=== PATIENT | female | born 1940 | race Caucasian/White ===

== ENCOUNTER 2016-08-20 06:24 | Day surgery (SDC) | payer MEDICARE, OTHER ==
[~2016-08-20] VITALS: Ht 144.8 cm; Wt 48.4 kg
[~2016-08-20 06:24] MED LIST: BIOT800T PO; BUPR150T12 PO; CALC-78 PO; CHOL100045 PO; CIPR-231 PO; CRB200T PO; Clindamycin 600 mg/50 mL D5W IV ONE; DICY10CA13 PO; FESO8TAB PO; Lactated Ringer's 1,000 ML IV SCH; MULT-1018 PO; OMEG-38 PO; PRE625 PO; PRIM50TA PO; RANI150C4 PO; SENN-133 PO; VITA400C23 PO
[2016-08-20] MEDS ORDERED: Ondansetron 2 mg/mL 2 mL Inj ONE (06:25)
[2016-08-20] MEDS ORDERED: fentaNYL-PF 50 mCg/mL 2 mL Inj ONE (06:25)
[2016-08-20] MEDS ORDERED: Propofol 10,000 mCg/mL 20 mL Inj ONE (06:25)
[2016-08-20] MEDS ORDERED: Clindamycin 600 mg/50 mL D5W Premix IV ONE (06:39)
[2016-08-20 06:46] VITALS: BP 138/61; PULSE 82; RESP 16; O2SAT 99
[2016-08-20] MEDS ORDERED: Lactated Ringer's 1,000 ML IV ONE (07:11)
[2016-08-20] MEDS ORDERED: Lactated Ringer's 1,000 ML IV SCH (08:19)
[2016-08-20] MEDS ORDERED: Lactated Ringer's 500 ML IV PRN (08:19)
[2016-08-20] MEDS ORDERED: Phenylephrine 10,000 mCg/mL Inj IVPUSH PRN (08:20)
[2016-08-20] MEDS ORDERED: EPHEDrine Sulfate 50 mg/mL Inj IVPUSH PRN (08:20)
[2016-08-20] MEDS ORDERED: MetoCLOpramide 5 mg/mL 2 mL Inj IVPUSH PRN (08:20)
[2016-08-20] MEDS ORDERED: HYDROmorphone 1 mg/mL Inj IVPUSH PRN (08:20)
[2016-08-20] MEDS ORDERED: Dexamethasone 4 mg/mL Inj IVPUSH PRN (08:20)
[2016-08-20] MEDS ORDERED: fentaNYL-PF 50 mCg/mL 2 mL Inj IVPUSH PRN (08:20)
[2016-08-20] MEDS ORDERED: Ondansetron 2 mg/mL 2 mL Inj IVPUSH PRN (08:20)
[2016-08-20] MEDS ORDERED: Gentamicin 40 mg/mL 2 mL Inj IRRIGATION ONE (08:37)
[2016-08-20] MEDS ORDERED: Vancomycin 1,000 mg Inj IRRIGATION ONE (08:39)
[2016-08-20] MEDS ORDERED: Bupivacaine-MPF 0.25%/EPI 30 mL Inj INJ ONE (08:41)
--- NOTE | 2016-08-20 08:52 | PCM.HPANE ---
Patient Data Surgeon Admitting Provider: Attending Provider:Susan Rico MD Primary Care Physician:Miguelina Pacheco PA-C Other Provider:Mago Harrison Anesthesia Reason for Visit Mixed Incontinence, Urgency Of Urination Ht/WT & BMI Height (Feet): 4 Height (Inches): 9 Weight (Kilograms): 48.4 Body Mass Index 23.00 Allergies Coded Allergies: cephalexin (Verified Allergy, Unknown, unknown, 08/15/16) Past Anesthesia History Anesthesia History: Denies:: Anesthesia Reactions, Malignant Hyperthermia Diabetes History Hx Diabetes?: No MRSA MRSA: No Medications Home Meds Incl Beta Usha: No Reported Medications Fesoterodine ER (Toviaz)8 Mg Tablet8 Mg PO DAILY 08/15/16 Vitamin E 400 Unit [id number] Unit PO DAILY 08/15/16 Cholecalciferol (Vitamin D3) (Vitamin D)1,000 Unit Capsule2,000 Unit PO DAILY # 1 BOTTLE Ref 0 08/15/16 Primidone 50 Mg Zculnk701 Mg PO TID 30 Days 08/15/16 Estrogens Conjugated (Premarin)0.625 Mg Tablet0.625 Mg PO DAILY 30 Days Ref 0 08/15/16 Multivitamin (Multi Vitamin Daily)1 Each Tablet1 Each PO DAILY 30 Days Ref 0 08/15/16 [place]-3/Dha/Epa/Fish Oil (Fish Oil 1,000 mg Softgel)1 Each Capsule1 Each PO DAILY 08/15/16 Ciprofloxacin (Cipro)500 Mg Rzhxor098 Mg PO BID Ref 0 08/15/16 Carbamazepine 200 Mg Ujbpqd683 Mg PO BID 08/15/16 Calcium Carbonate/Vitamin D3 (Calcium 500 + Vit D Caplet)1 Each Tablet1 Each PO DAILY 08/15/16 Bupropion ER 150 Mg Tablet.er150 Mg PO BID Ref 0 08/15/16 Biotin 800 Mcg Obccqk404 Mcg PO DAILY 08/15/16 Discontinued Reported Medications Sennosides (Senna)8.6 Mg Tablet8.6 Mg PO Q 2 DAYS PRN For Constipation 08/15/16 Ranitidine 150 Mg Spjbmth799 Mg PO QPM Ref 0 08/15/16 Dicyclomine 10 Mg Nxmtlos83 Mg PO TID PRN For GI Cramps Ref 0 08/15/16 History History of ENT Problems?: No HEENT History: Denies:: Abnormal Airway Cataracts Difficult Intubation Dysphagia Glaucoma Hearing Problem Sinus Problem TMJ Denture Type: Partial- Upper Teeth Condition: Within Normal Limits Hx of Heart Problems?: No Cardiovascular History: Denies:: Heart Murmur Hypertension Hx of Respiratory Problem?: No Respiratory History: Denies:: Use of C-PAP Machine Hx Neurologic Problems?: Yes Other Neurological Pertinent: 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 CYSTOS Female Hx: Denies:: Currently Skin History: Denies:: History Skin Disorders? Pressure Ulcers Hx Musculoskeletal Problems?: Yes Musculoskeletal History: Positive for:: Osteoarthritis Hx of Psycho/Social Problems?: Yes Psycho Social History: Positive for:: Anxiety Hx Depression Hx Surgeries?: Yes (CYSTOS,HYST,BUNIONECTOMY) Hx Any Other Health Problems?: Yes Other History: Denies:: Endocrine Disease Hospitalization Thyroid Disease Hx Diabetes: No Hx Alcohol Use: NoHave You Smoked inLast 12 mo: Yes (TRYING TO QUIT)Approx How Many Cigarettes/day: 1 PPD X 20YRS Stop/Bang S-Snoring: Do You Snore Loudly: No T-Tired: feel tired, fatigued: No O-Obsered: Observed not breath: No P-Blood Pressure: treated: No B- Body Mass Index > 35 kg/m2: No A- Age over 50: Yes N- Neck Large Circumference: No G- Gender Male: No ANTONIA Total Score: 1 ANTONIA Risk Assessment: Low Risk, <3 Yes Risk Assessment Category Category 1A: Patient has history of documented sleep apnea, and HAS NOT received any narcotic, sedative or anesthesia administration during this stay. Category 1B: Patient has history of documented sleep apnea, and HAS received any narcotic , sedative or anesthesia administration during this stay Category 2: Patient has SUSPECTED Obstructive Sleep Apnea, and HAS received any narcotic , sedative or anesthesia administration during this stay. Category 3: Patient has SUSPECTED Obstructive Sleep Apnea and HAS NOT received narcotic, sedative or anesthesia administration during this stay. Category 4: Outpatient in Procedural Areas with known sleep apnea or who screen positive for High Risk via the STOP/BANG questionnaire. Exam Exam Vital Signs Vital Signs Date Time Temp Pulse Resp B/P Pulse Ox O2 Delivery O2 Flow Rate FiO2 08/20/16 06:46 36.3 82 16 138/61 99 Room Air General Appearance: Alert, Oriented X3, Cooperative HEENT/AIRWAY: MP 1 Lungs: Clear to Auscultation Heart: Exam Unremarkable Meds/Labs/Diagnostics Admission Meds Current Medications Lactated Ringer's (Lr) 1,000 ml @ ud STK-MED ONCE IV Last administered on 08/20t 07:11; Start 08/20/16 at 07:11; Stop 08/20/16 at 07:12; Status DC Plan Impression Patient chart reviewed, patient interviewed and anesthestic plan with risks, benefits, and alternatives discussed, and informed consent obtained. ASA Physical Status: ASA2 Mod Systemic Disease Anesthetic Plan: MAC Bene/Risks/Altern/Consents: Yes HP Complete Prior to Induction: Yes Angel Beaulieu DO Aug 20, 2016 08:12
[2016-08-20 09:42] VITALS: BP 115/59; PULSE 80; RESP 16; O2SAT 97
[2016-08-20] MEDS ORDERED: Ondansetron 8 mg ODT Tablet PO PRN (09:45)
[2016-08-20] MEDS ORDERED: HYDROcodone-APAP 5-325 mg Tablet PO PRN (09:45)
--- NOTE | 2016-08-20 11:04 | PCM.ANEP1 ---
Post Anesthesia Phase 1 PACU Phase 1 Assessment Vital Signs Vital Signs Date Time Temp Pulse Resp B/P Pulse Ox O2 Delivery O2 Flow Rate FiO2 08/20/16 09:42 36.7 80 16 115/59 97 Room Air 08/20/16 06:46 36.3 82 16 138/61 99 Room Air Anesthetic Administered: MAC Level of Alertness: Awake, talking LACY's with Equal Strength: Yes Pain: No Nausea or Vomiting: No Cardiovascular Function and Hy: Yes Oxygen Delivery: Room Air Lungs: Clear to Auscultation Dermatome Level: Full Sensation Complications: No Follow up Care: No Patient Instructions Provided: Yes Angel Beaulieu DO Aug 20, 2016 11:04
--- NOTE | 2016-08-21 09:25 | OP ---
[address] [address] OPERATIVE REPORT PATIENT: KENN QUINONEZ : 1940 MR#: [id number] ADMIT: 08/20/2016 JOB ID: [id number] DATE OF SURGERY: 08/20/2016 PROCEDURE NAME: Stage 1 InterStim implant to include transforaminal placement of a quadripolar electrode, neuro electrode lead and fluoroscopy imaging and guidance. SURGEON: Susan Rico M.D. ANESTHESIA: Local with monitored anesthesia care and IV sedation. PREOPERATIVE DIAGNOSIS(ES): Intractable urinary urgency, frequency, urge incontinence. POSTOPERATIVE DIAGNOSIS(ES): Intractable urinary urgency, frequency, urge incontinence. INDICATIONS: The patient is a 75-year-old with a longstanding history of mixed incontinence but her bothered symptoms varied predominantly driven by the urge component including urgency, urge incontinence, inability to make it to the bathroom at night. She has tried and failed numerous medications and behavioral changes, wishing to proceed with a trial of sacral nerve modulation for her severe symptoms. PROCEDURE IN DETAIL: After appropriate informed consent was obtained, the patient was brought to the operating room. She received IV antibiotics prior to onset of the procedure. She was made comfortable in the prone position. All pressure points carefully padded. Cleaned, prepped, and draped in the usual sterile fashion. Fluoroscope was brought in. Bony landmarks were identified. We used a half/half mixture of lidocaine, Marcaine with epinephrine for local anesthesia. We used a finder needle to traverse the right-sided S3 sacral foramen assessing S3 responses of toe and caroline. This was converted in a Seldinger fashion once we had good placement to quadripolar electrode. We had responses on all four electrodes. They were well under 1 on electrodes 0 and 1, slightly over 1 on 2 and 3 with final placement having been a little bit better earlier, suspected to be some blood in the region. Comfortable for the patient. There was minimal bleeding. The introducer was removed allowing the tines to deploy and locking lead in place. We then created a pocket overlying the right-sided iliac crest in the buttocks area again with lidocaine, Marcaine for local anesthesia. The pocket was created sharply, bluntly and with electrocautery and the lead was tunneled across to the pocket and we made connections to the extension wire using the boot cover device. Hemostasis was achieved with electrocautery. We then tunneled out the distal end of the extension wire to the patient's left. Next distance between the permanent lead and the temporary portion which will be externalized. The wounds were irrigated out copiously with vancomycin and gentamicin solution between each layer of closure. We closed with a layer of 2-0 Vicryl, a layer of 4-0 Monocryl and then benzoin and Steri-Strips. Sterile dressings were applied. Final fluoroscopic images showed the lead to be in good position, AP and lateral. She tolerated the procedure well, was awakened and taken in stable condition to the one-day surgery area as she had been awake.
[2016-08-26] MEDS ORDERED: SULF1TAB35 PO (13:11)
[2016-08-26] MEDS ORDERED: HYDR-4003 PO (13:11)
== END 2016-08-20 23:59 | disposition home or self-care (01) ==
LOC: SAS 06:24
PROVIDERS: ATTEND Urology
PROC: 01HY0MZ Insertion of Neurostimulator Lead into Peripheral Nerve, Open Approach (ICD-10-PCS; principal; 2016-08-20 08:30)
DX: N39.46 Mixed incontinence (principal); Z90.710 Acquired absence of both cervix and uterus; F17.210 Nicotine dependence, cigarettes, uncomplicated; R35.1 Nocturia
CPT/HCPCS: 64581; 76000; C1778; J1580; J2405; J3010; J3370; J7120

== ENCOUNTER 2016-08-29 05:50 | Day surgery (SDC) | payer MEDICARE, OTHER ==
[~2016-08-29] VITALS: Ht 149.9 cm; Wt 47.4 kg
[~2016-08-29 05:50] MED LIST changes: -Clindamycin 600 mg/50 mL D5W IV ONE; -DICY10CA13 PO; +HYDR-4003 PO; -Lactated Ringer's 1,000 ML IV SCH; -RANI150C4 PO; -SENN-133 PO; +SULF1TAB35 PO
[2016-08-29] MEDS ORDERED: fentaNYL-PF 50 mCg/mL 2 mL Inj ONE (05:51)
[2016-08-29] MEDS ORDERED: Propofol 10,000 mCg/mL 20 mL Inj ONE (05:51)
[2016-08-29] MEDS ORDERED: Clindamycin Inj 600 MG in IV Premix 1 EACH IV ONE (06:00)
[2016-08-29] MEDS: Lactated Ringer's 1,000 ML IV SCH ×2 (06:22→07:26)
[2016-08-29 06:30] VITALS: BP 126/62; PULSE 75; RESP 14; O2SAT 99
[2016-08-29] MEDS ORDERED: Lactated Ringer's 1,000 ML IV SCH (07:08)
[2016-08-29] MEDS ORDERED: Lactated Ringer's 500 ML IV PRN (07:08)
--- NOTE | 2016-08-29 07:08 | PCM.HPANE ---
Patient Data Date of Service: August 29, 2016 Surgeon Admitting Provider: Attending Provider:Susan Rico MD Primary Care Physician:Javier Barron DO Other Provider:Mago Harrison Anesthesia Reason for Visit Mixed Incontinence, Urgency Of Urination Ht/WT & BMI Height (Feet): 4 Height (Inches): 11 Weight (Kilograms): 47.4 Body Mass Index 21.00 Allergies Coded Allergies: cephalexin (Verified Allergy, Unknown, unknown, 08/26/16) iodine (Verified Allergy, Unknown, UNKNOWN, 08/26/16) Past Anesthesia History Anesthesia History: Denies:: Abnormal Airway, Anesthesia Reactions, Difficult Intubation, Malignant Hyperthermia Diabetes History Hx Diabetes?: No MRSA MRSA: No Medications Hypertension Medication: No Home Meds Incl Beta Usha: No Reported Medications Hydrocodone-Acetaminophen 5-325 mg 1 Each Tablet1 Tablet PO Q4H PRN For Pain Ref 0 08/26/16 Fesoterodine ER (Toviaz)8 Mg Tablet8 Mg PO DAILY 08/15/16 Vitamin E 400 Unit [id number] Unit PO DAILY 08/15/16 Cholecalciferol (Vitamin D3) (Vitamin D)1,000 Unit Capsule2,000 Unit PO DAILY # 1 BOTTLE Ref 0 08/15/16 Primidone 50 Mg Jhgmcn262 Mg PO TID 30 Days 08/15/16 Estrogens Conjugated (Premarin)0.625 Mg Tablet0.625 Mg PO DAILY 30 Days Ref 0 08/15/16 Multivitamin (Multi Vitamin Daily)1 Each Tablet1 Each PO DAILY 30 Days Ref 0 08/15/16 [place]-3/Dha/Epa/Fish Oil (Fish Oil 1,000 mg Softgel)1 Each Capsule1 Each PO DAILY 08/15/16 Carbamazepine 200 Mg Xmaexf770 Mg PO BID 08/15/16 Calcium Carbonate/Vitamin D3 (Calcium 500 + Vit D Caplet)1 Each Tablet1 Each PO DAILY 08/15/16 Bupropion ER 150 Mg Tablet.er150 Mg PO BID Ref 0 08/15/16 Biotin 800 Mcg Ikqfpm504 Mcg PO DAILY 08/15/16 Discontinued Reported Medications Sulfamethoxazole/Trimeth 800-160 mg (Bactrim DS 800-160 mg)1 Each Tablet1 Tablet PO BID Ref 0 08/26/16 Ciprofloxacin (Cipro)500 Mg Jkomtn545 Mg PO BID Ref 0 08/15/16 History History of ENT Problems?: Yes HEENT History: Denies:: Abnormal Airway Cataracts Difficult Intubation Dysphagia Hearing Problem Sinus Problem TMJ Denture Type: Partial- Upper Teeth Condition: Within Normal Limits Hx of Heart Problems?: No Cardiovascular History: Denies:: Heart Murmur Hypertension Hx of Respiratory Problem?: No Respiratory History: Denies:: Use of C-PAP Machine Hx Neurologic Problems?: Yes Other Neurological Pertinent: 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 CYSTOS Female Hx: Denies:: Currently Skin History: Denies:: History Skin Disorders? Pressure Ulcers Hx Musculoskeletal Problems?: Yes Musculoskeletal History: Positive for:: Osteoarthritis Hx of Psycho/Social Problems?: Yes Psycho Social History: Positive for:: Anxiety Hx Depression Hx Surgeries?: Yes (CYSTOS,HYST,BUNIONECTOMY,INTERSTIM STAGE I) Hx Any Other Health Problems?: Yes Other History: Denies:: Cancer Endocrine Disease Hospitalization Thyroid Disease Hx Diabetes: No Hx Alcohol Use: No Smoking Status: Current Every Day Smoker Have You Smoked inLast 12 mo: Yes (TRYING TO QUIT)Approx How Many Cigarettes/ day: 1 PPD X 20YRS Stop/Bang Treated for Sleep Apnea?: No Do You Have a CPAP Machine?: No S-Snoring: Do You Snore Loudly: No T-Tired: feel tired, fatigued: No O-Obsered: Observed not breath: No P-Blood Pressure: treated: No B- Body Mass Index > 35 kg/m2: No A- Age over 50: Yes N- Neck Large Circumference: No G- Gender Male: No ANTONIA Total Score: 1 ANTONIA Risk Assessment: Low Risk, <3 Yes Risk Assessment Category Category 1A: Patient has history of documented sleep apnea, and HAS NOT received any narcotic, sedative or anesthesia administration during this stay. Category 1B: Patient has history of documented sleep apnea, and HAS received any narcotic , sedative or anesthesia administration during this stay Category 2: Patient has SUSPECTED Obstructive Sleep Apnea, and HAS received any narcotic , sedative or anesthesia administration during this stay. Category 3: Patient has SUSPECTED Obstructive Sleep Apnea and HAS NOT received narcotic, sedative or anesthesia administration during this stay. Category 4: Outpatient in Procedural Areas with known sleep apnea or who screen positive for High Risk via the STOP/BANG questionnaire. Exam Exam Vital Signs Vital Signs Date Time Temp Pulse Resp B/P Pulse Ox O2 Delivery O2 Flow Rate FiO2 08/29/16 06:30 35.9 75 14 126/62 99 Room Air General Appearance: Alert, Oriented X3, Cooperative HEENT/AIRWAY: MP 2, Neck Movement (Full) Lungs: Clear to Auscultation, Normal Air Movement Heart: Regular Rate/Rhythm, Normal S1, Normal S2 Meds/Labs/Diagnostics Admission Meds Current Medications Lactated Ringer's (Lr) 1,000 ml @ 120 mls/hr Q8H20M IV Last administered on t 06:22; Start 08/29/16 at 05:00; Stop 08/29/16 at 13:19 Plan Impression Patient chart reviewed, patient interviewed and anesthestic plan with risks, benefits, and alternatives discussed, and informed consent obtained. NPO per Anesth. Guidelines: Yes ASA Physical Status: ASA2 Mod Systemic Disease Anesthetic Plan: MAC Bene/Risks/Altern/Consents: Yes HP Complete Prior to Induction: Yes Prabhjot Ramírez MD August 29, 2016 06:57
[2016-08-29] MEDS ORDERED: fentaNYL-PF 50 mCg/mL 2 mL Inj IVPUSH PRN (07:10)
[2016-08-29] MEDS ORDERED: Labetalol 5 mg/mL 4 mL Inj IV PRN (07:10)
[2016-08-29] MEDS ORDERED: Phenylephrine 10,000 mCg/mL Inj IVPUSH PRN (07:10)
[2016-08-29] MEDS ORDERED: Ondansetron 2 mg/mL 2 mL Inj IVPUSH PRN (07:10)
[2016-08-29] MEDS ORDERED: Dexamethasone 4 mg/mL Inj IVPUSH PRN (07:10)
[2016-08-29] MEDS ORDERED: HYDROmorphone 1 mg/mL Inj IVPUSH PRN (07:10)
[2016-08-29] MEDS ORDERED: Atropine 0.4 mg/mL Inj IVPUSH PRN (07:10)
[2016-08-29] MEDS ORDERED: MetoCLOpramide 5 mg/mL 2 mL Inj IVPUSH PRN (07:10)
[2016-08-29] MEDS ORDERED: EPHEDrine Sulfate 50 mg/mL Inj IVPUSH PRN (07:10)
[2016-08-29] MEDS ORDERED: hydrALAZINE 20 mg/mL Inj IVPUSH PRN (07:10)
[2016-08-29] MEDS ORDERED: Vancomycin 1,000 mg Inj IRRIGATION ONE (07:35)
[2016-08-29] MEDS ORDERED: Bupivacaine-MPF 0.5% W/EPI 30 mL Inj INJ ONE (07:35)
[2016-08-29] MEDS ORDERED: Gentamicin 40 mg/mL 2 mL Inj IRRIGATION ONE (07:35)
[2016-08-29] MEDS ORDERED: Ondansetron 8 mg ODT Tablet PO PRN (08:15)
[2016-08-29] MEDS ORDERED: HYDROcodone-APAP 5-325 mg Tablet PO PRN (08:15)
[2016-08-29 08:17] VITALS: BP 129/79; PULSE 78; RESP 16; O2SAT 99
--- NOTE | 2016-08-29 08:19 | PCM.ANEP1 ---
Post Anesthesia Phase 1 PACU Phase 1 Assessment Date of Service: August 29, 2016 Vital Signs Vital Signs Date Time Temp Pulse Resp B/P Pulse Ox O2 Delivery O2 Flow Rate FiO2 08/29/16 08:17 78 16 129/79 99 Room Air 08/29/16 06:30 35.9 75 14 126/62 99 Room Air Anesthetic Administered: MAC Level of Alertness: Awake, talking LACY's with Equal Strength: Yes Pain: No Nausea or Vomiting: No Cardiovascular Function and Hy: Yes Oxygen Delivery: Room Air Lungs: Normal Air Movement Dermatome Level: Full Sensation Complications: No Follow up Care: No Patient Instructions Provided: Yes Prabhjot Ramírez MD August 29, 2016 08:19
[2016-08-29 08:22] VITALS: BP 114/40; PULSE 71; RESP 16; O2SAT 99
[2016-08-29 08:51] VITALS: BP 118/42; PULSE 67; RESP 16; O2SAT 100
--- NOTE | 2016-08-30 20:14 | OP ---
[address] [address] OPERATIVE REPORT PATIENT: KENN QUINONEZ : 1940 MR#: [id number] ADMIT: 08/29/2016 JOB ID: [id number] DATE OF SURGERY: 08/29/2016 SURGEON: Susan Rico MD. PROCEDURE: Stage 2 InterStim implant to include implantable pulse generator implantation, complex initial programming and set-up of device. ANESTHESIA: Local with monitored anesthesia care and IV sedation. PREOPERATIVE DIAGNOSIS(ES): Intractable urinary urgency, frequency, urge incontinence. POSTOPERATIVE DIAGNOSIS(ES): Intractable urinary urgency, frequency, urge incontinence. INDICATIONS: The patient is a 75-year-old with longstanding history of mixed urinary incontinence with severe urge incontinence component. Tried and failed numerous medications. Electing trial of sacral nerve modulation. She underwent stage 1 implant on the right side on August 20, 2016, and had approximately 90% improvement using just one pad a day with minimal leakage previously, quite significant in very bothersome. Wishing to proceed with implant. PROCEDURE IN DETAIL: After appropriate informed consent was obtained, the patient was brought to the operating room. She was made comfortable in the prone position. All pressure points were carefully padded. Cleaned, prepped, and draped in the usual sterile fashion. Local anesthesia, mixture half-half of lidocaine/Marcaine was used to infiltrate the area overlying the right-sided buttock pocket. This was incised sharply carefully to expose the extension wire disposable which was and handed off the table. Screwdriver was used to disconnect the anterior portion. The wound itself was enlarged to accept the size of the Medtronic 2 IPG. Hemostasis was achieved with electrocautery. It was irrigated out copiously with antibiotic solution which was a mixture of vancomycin and gentamicin. The IPG was attached. Gentle tug revealed a good connection. It fit nicely into the pocket site. It was irrigated out further with antibiotic solution and closed in layers with irrigation between each layer of 2-0 Vicryl running, 4-0 Monocryl running and Dermabond. Patient tolerated the procedure very well and was returned to the one-day surgery area where the device itself was turned on. Was found to be operating within normal parameters. It was set up initially with a rate of 14, pulse width of 210. Program one was set up as zero negative and 3 positive. Program two was 1 negative and 3 positive. Program three was 2 negative and zero positive. Program four was 3 negative and zero positive. The patient tolerated the procedure very well.
== END 2016-08-29 23:59 | disposition home or self-care (01) ==
LOC: SAS 05:50 → EDUNIT# 07:15 → SAS 23:59
PROVIDERS: ATTEND Urology
DX: N39.41 Urge incontinence (principal); R35.0 Frequency of micturition; R35.1 Nocturia; N32.81 Overactive bladder; F32.9 Major depressive disorder, single episode, unspecified; F41.9 Anxiety disorder, unspecified; M19.90 Unspecified osteoarthritis, unspecified site; F17.210 Nicotine dependence, cigarettes, uncomplicated
CPT/HCPCS: 64590; 95972; C1767; J1580; J3010; J3370; J7120